=== PATIENT | female | born 1970 | race African-American/Black ===

== ENCOUNTER → 2019-04-13 | Emergency (ER) | payer MEDICAID ==
[~2019-04-13] VITALS: Ht 167.6 cm; Wt 98.3 kg
[~2019-04-13] MED LIST: ACET325T45 PO; DIPHTH/TET/ACEL PERTUSS (ADULT) 0.5 ML VIAL IM* ONE; IBUPROFEN 800 MG TAB PO ONE; LIDOCAINE 1% (MPF) 5 ML VIAL INJ ONE; NAPR-985 PO
[2019-04-13 13:58] VITALS: BP 133/79; PULSE 84; RESP 16; Ht 167.6 cm; Wt 98.3 kg
--- NOTE | 2019-04-13 15:16 | ERD ---
ER Documentation Chief Complaint Chief Complaint L hand laceration while opening a coconut HPI 48-year-old female presenting with laceration to left hand. Patient was cutting a coconut in the next slipped and she cut the palm of her hand. She is right- hand dominant. Does not recall her last tetanus shot. Denies any numbness or tingling. Denies other medical problems. NKDA. Surgical history denies. Social history denies ROS All systems reviewed and are negative except as per history of present illness. Medications Home Meds Active Scripts Naproxen* (Naprosyn*) 500 Mg Tablet, 500 MG PO BID PRN for PAIN AND/OR INFLAMMATION, #30 TAB Prov:NICOLE SCHULER PA-C 04/13/19 Allergies Allergies: Coded Allergies: No Known Allergy (Unverified , 11/21/14) PMhx/Soc History of Surgery: No Anesthesia Reaction: No Hx Neurological Disorder: No Hx Respiratory Disorders: No Hx Cardiac Disorders: No Hx Psychiatric Problems: No Hx Miscellaneous Medical Probl: No Hx Alcohol Use: No Hx Substance Use: No Hx Tobacco Use: No Smoking Status: Never smoker FmHx Family History: No diabetes, No coronary disease, No other Physical Exam Vitals Vital Signs Date Temp Pulse Resp B/P (MAP) Pulse Ox O2 O2 Flow FiO2 Time Delivery Rate 04/13/19 98.3 84 16 133/79 99 13:58 (97) Physical Exam GENERAL: The patient is well-appearing, well-nourished, in no acute distress CHEST: Clear to auscultation bilaterally. There are no rales, wheezes or rhonchi. HEART: Regular rate and rhythm. No murmurs, clicks, rubs or gallops. EXTREMITIES: Equal pulses bilaterally. There is no peripheral clubbing, cyanosis or edema. No focal swelling or erythema. Full range of motion. NEUROLOGIC: Alert and oriented. Cranial nerves II through XII intact. Motor strength in all 4 extremities with 5 out of 5 strength. Sensation grossly intact. Normal speech and gait. SKIN: 1 cm linear laceration. Mild bleeding. No foreign bodies. Results 24 hrs Current Medications Medications Dose Sig/Eusebia Start Time Status Last (Trade) Ordered Route PRN Stop Time Admin Dose Reason Admin Lidocaine 5 ml ONCE ONCE 04/13/19 DC (Xylocaine INJ 14:30 1% (Mpf)) 04/13/19 14:31 Diphtheria/ 0.5 ml ONCE ONCE 04/13/19 DC 04/13/19 Tetanus/Acell IM* 14:30 14:34 Pertussis 04/13/19 14:31 (Adacel) Ibuprofen 800 mg ONCE ONCE 04/13/19 DC 04/13/19 (Motrin) PO 15:00 15:01 04/13/19 15:01 Procedures/MDM Laceration Repair by me: Anesthesia: 1% lidocaine locally Location: left palm Tendon/Joint/Nerves: No injury Foreign body: None detected after copious irrigation and exploration Technique: Four 5-0 nylon simple Interrupted Sutures Complexity: No subcutaneous sutures/mucosal repair/edge excision Post Closure Length: 1 cm Patient's bleeding was easily controlled in the department and there is no indication of anemia. No evidence of compartment syndrome, neurologic injury, vascular injury, open joint, tendon laceration, or foreign body. Patient is appropriate for outpatient follow up. 48 hour wound check. Scar minimization instructions given. MDM: 48-year-old female presenting with a laceration of the left hand. I have low suspicion for tendon or ligament rupture. Patient is able to nicely all digits of the left hand. I have low suspicion for neuro deficit as patient has neurovascular sensation to the whole left hand. I have low suspicion for v ascular injury. Bleeding is controlled. Patient is discharged with strict ER precautions and told to follow-up with primary care within 1 to 2 days for close evaluation. Patient is told symptoms change or worsen to return immediately to the ER. All questions answered at discharge Departure Diagnosis: Primary Impression: Laceration Condition: Stable Patient Instructions: Laceration, Hand Referrals: [facility] YOU HAVE RECEIVED A MEDICAL SCREENING EXAM AND THE RESULTS INDICATE THAT YOU DO NOT HAVE A CONDITION THAT REQUIRES URGENT TREATMENT IN THE EMERGENCY DEPARTMENT. FURTHER EVALUATION AND TREATMENT OF YOUR CONDITION CAN WAIT UNTIL YOU ARE SEEN IN YOUR DOCTORS OFFICE WITHIN THE NEXT 1-2 DAYS. IT IS YOUR RESPONSIBILITY TO MAKE AN APPOINTMENT FOR FOLOW-UP CARE. IF YOU HAVE A PRIMARY DOCTOR --you should call your primary doctor and schedule an appointment IF YOU DO NOT HAVE A PRIMARY DOCTOR YOU CAN CALL OUR PHYSICIAN REFERRAL HOTLINE AT IF YOU CAN NOT AFFORD TO SEE A PHYSICIAN YOU CAN CHOSE FROM THE FOLLOWING [facility] [address] [facility] [address] [facility]. [facility] [address] [facility] [address] [facility] [address] [facility]. [facility] [address] Additional Instructions: FOLLOW UP WITH YOUR PRIMARY CARE PHYSICIAN TOMORROW.Return to this facility if you are not improving as expected. NICOLE SCHULER PA-C Apr 13, 2019 15:16
== END | disposition home or self-care (01) ==
LOC: FTE 13:55
DX: S61.412A Laceration without foreign body of left hand, initial encounter (principal); W26.0XXA Contact with knife, initial encounter; Y92.9 Unspecified place or not applicable; Z21 Asymptomatic human immunodeficiency virus [HIV] infection status
CPT/HCPCS: 12001; 90471; 90715; Z7502; Z7610

== ENCOUNTER 2019-04-15 07:30 | Emergency (ER) | payer MEDICAID ==
[~2019-04-15] VITALS: Ht 165.1 cm; Wt 98.1 kg
[~2019-04-15 07:30] MED LIST changes: -DIPHTH/TET/ACEL PERTUSS (ADULT) 0.5 ML VIAL IM* ONE; -IBUPROFEN 800 MG TAB PO ONE; -LIDOCAINE 1% (MPF) 5 ML VIAL INJ ONE
[2019-04-15 07:35] VITALS: BP 153/71; PULSE 74; RESP 18; Ht 165.1 cm; Wt 98.1 kg
--- NOTE | 2019-04-15 08:05 | ERD ---
ER Documentation Chief Complaint Chief Complaint 2 day wound recheck HPI 48-year-old female presented to ED for a wound check on her left palm. It appears the patient has [address] the wound is adhering nice there is no drainage. The patient states she cut her hand with a knife the other day. Patient denies fever chills worsening hand pain numbness tingling in the extremity. The patient states she has full function of her hand and has not had any complications since having sutures placed in. Patient states that she just has a little bit of pain which is a 2 out of 10 but it is bearable at this time. ROS All systems reviewed and are negative except as per history of present illness. Medications Home Meds Active Scripts Acetaminophen* (Acetaminophen*) 325 Mg Tablet, 325 MG PO Q4H PRN for PAIN AND OR ELEVATED TEMP, #30 TAB Prov:MAAME ROGERS PA-C 04/15/19 Naproxen* (Naprosyn*) 500 Mg Tablet, 500 MG PO BID PRN for PAIN AND/OR INFLAMMATION, #30 TAB Prov:NICOLE SCHULER PA-C 04/13/19 Allergies Allergies: Coded Allergies: No Known Allergy (Unverified , 11/21/14) PMhx/Soc Medical and Surgical Hx: pt denies Medical Hx History of Surgery: No Anesthesia Reaction: No Hx Neurological Disorder: No Hx Respiratory Disorders: No Hx Cardiac Disorders: No Hx Psychiatric Problems: No Hx Miscellaneous Medical Probl: Yes (APPY, C SECTION) Hx Alcohol Use: No Hx Substance Use: No Hx Tobacco Use: No Smoking Status: Never smoker FmHx Family History: No diabetes, No coronary disease, No other Physical Exam Vitals Vital Signs Date Temp Pulse Resp B/P (MAP) Pulse Ox O2 O2 Flow FiO2 Time Delivery Rate 04/15/19 97.9 74 18 153/71 98 07:35 (98) Physical Exam GENERAL: Mild distress CHEST: Clear to auscultation bilaterally. There are no rales, wheezes or rhonchi. HEART: Regular rate and rhythm. No murmurs, clicks, rubs or gallops. EXTREMITIES: Patient has approximately 3 cm laceration on the left anterior aspect of her palm. The wound is adhering nice with [address] no sign of fluctuant masses or drainage. The patient has good pulse motor sensation extremity there is no pain with passive movement no pain with active movement the patient has good sensation in the anterior aspect of her palm and all 5 digits and has good sensation in the posterior aspect of her hand and all 5 digits o signs of open fractures or exposure of soft tissue. No skin pallor noted. Patient has intact gross motor function and distal pulses are present and equal bilaterally. NEUROLOGIC: Motor strength is 5 out of 5 strength in left hand. Sensation grossly intact. Procedures/MDM ED course: The patient was stable throughout the ED course. The patient and/or family informed of laboratory and diagnostic imaging results throughout the ED course. Procedures: The wound appears to be healing with no concerns of acute infection at this time. No wound drainage or wound just adherence noticed. Tetanus is up-to-date. Postprocedure wound care was discussed with the patient. Low cohen spicion for deep space infection, compartment syndrome, cellulitis. There was no evidence of neurologic, vascular or tendon injury. Medical decision makin-year-old female presented to ED for wound check for stitches she received 2 days ago on her left palm. Patient states an improvement in pain and improvement in discomfort since her initial visit. The patient denies any numbness tingling extremity. Patient has full function in the extremity. There is no signs of drainage from the wound. The patient's neurovascular exam was unremarkable. The patient has no concerns at this time. The patient was given a tetanus shot on her last visit. At this time I have low suspicion for osteomyelitis, abscess, neurovascular injury. Advised the patient she needs to return in 5 to 7 days from the initial injury to have the sutures removed. Advised the patient that if the symptoms worsen she should return to ER immediately. The patient had no further questions and is in agreement the treatment plan. The patient plans to still follow-up with her primary care provider in 1 to 2 days regarding this injury Prescription for home: Acetaminophen I have discussed with the patient proper use and common side effects to expert with the medication . I advised the patient/family to speak with the pharmacist dispensing the medication to be advised of any potential drug interactions with other medication or supplements they may be taking. Discharge: At this time, patient is stable for discharge and outpatient management. I have instructed the patient to follow-up with his\her primary care physician in 1 to 2 days. I have discussed with the patient the possibility of needing to see a specialist for further work-up and imaging studies if symptoms persist. I have instructed the patient to promptly return to the ER for any new or worsening symptoms including increased pain, fever, nausea, vomiting, weakness or LOC. The patient and\or family expressed understanding of and agreement with this plan. All questions were answered. Home care instructions were provided. Disclaimer: Inadvertent spelling and grammatical errors are likely due to EHR\dictation software use and do not reflect on the overall quality of patient care. Also, please note that the electronic time recorded on the note does not necessarily reflect the actual time of the patient encounter. Departure Diagnosis: Primary Impression: Follow-up examination for injury Additional Impression: Visit for wound check Condition: Stable Patient Instructions: Suture Care Referrals: [facility] YOU HAVE RECEIVED A MEDICAL SCREENING EXAM AND THE RESULTS INDICATE THAT YOU DO NOT HAVE A CONDITION THAT REQUIRES URGENT TREATMENT IN THE EMERGENCY DEPARTMENT. FURTHER EVALUATION AND TREATMENT OF YOUR CONDITION CAN WAIT UNTIL YOU ARE SEEN IN YOUR DOCTORS OFFICE WITHIN THE NEXT 1-2 DAYS. IT IS YOUR RESPONSIBILITY TO MAKE AN APPOINTMENT FOR FOLOW-UP CARE. IF YOU HAVE A PRIMARY DOCTOR --you should call your primary doctor and schedule an appointment IF YOU DO NOT HAVE A PRIMARY DOCTOR YOU CAN CALL OUR PHYSICIAN REFERRAL HOTLINE AT IF YOU CAN NOT AFFORD TO SEE A PHYSICIAN YOU CAN CHOSE FROM THE FOLLOWING [facility] [address] [facility]. [facility] [address] [facility]. [facility] [address] [facility] [address] [facility] [address] [facility]. [facility]. [address] [facility] [facility] YOU HAVE RECEIVED A MEDICAL SCREENING EXAM AND THE RESULTS INDICATE THAT YOU DO NOT HAVE A CONDITION THAT REQUIRES URGENT TREATMENT IN THE EMERGENCY DEPARTMENT. FURTHER EVALUATION AND TREATMENT OF YOUR CONDITION CAN WAIT UNTIL YOU ARE SEEN IN YOUR DOCTORS OFFICE WITHIN THE NEXT 1-2 DAYS. IT IS YOUR RESPONSIBILITY TO MAKE AN APPOINTMENT FOR FOLOW-UP CARE. IF YOU HAVE A PRIMARY DOCTOR --you should call your primary doctor and schedule and appointment IF YOU DO NOT HAVE A PRIMARY DOCTOR YOU CAN CALL OUR PHYSICIAN REFERRAL HOTLINE AT . IF YOU CAN NOT AFFORD TO SEE A PHYSICIAN YOU CAN CHOSE FROM THE FOLLOWING [facility] INSTITUTIONS: [facility] [id number] [place] [address] [facility] [address] [place] [address] [facility] [address] [place] [address] [facility] Additional Instructions: Call your primary care doctor TOMORROW for an appointment during the next 1-2 days.See the doctor sooner or return here if your condition worsens before your appointment time. Follow up with your physician to remove the stitches:For Face wounds 5-7 days.For Elsewhere on the body 7-10 days. MAAME ROGERS PA-C Apr 15, 2019 08:05
== END 2019-04-15 07:57 | disposition home or self-care (01) ==
LOC: FTE 07:30
DX: Z48.00 Encounter for change or removal of nonsurgical wound dressing (principal)
CPT/HCPCS: 99281

== ENCOUNTER 2019-04-20 07:37 | Emergency (ER) | payer MEDICAID ==
[~2019-04-20] VITALS: Ht 165.1 cm; Wt 95.1 kg
[2019-04-20 07:39] VITALS: BP 134/70; PULSE 85; RESP 18; Ht 165.1 cm; Wt 95.1 kg
== END 2019-04-20 08:07 | disposition home or self-care (01) ==
LOC: FTE 07:37
DX: Z48.02 Encounter for removal of sutures (principal)
CPT/HCPCS: 99281